=== PATIENT | female | born 1960 | race Caucasian/White ===

== ENCOUNTER → 2017-04-21 | Outpatient (CLI) | payer OTHER | END | disposition home or self-care (01) | LOC: WOUND 07:51 | PROVIDERS: ATTEND Physician Assistant | DX: T86.820 Skin graft (allograft) rejection (principal); L97.822 Non-pressure chronic ulcer of other part of left lower leg with fat layer exposed; G89.29 Other chronic pain; M81.0 Age-related osteoporosis without current pathological fracture; Z87.891 Personal history of nicotine dependence; Y83.2 Surgical operation with anastomosis, bypass or graft as the cause of abnormal reaction of the patient, or of later complication, without mention of misadventure at the time of the procedure | CPT/HCPCS: 11042; 99215 ==

== ENCOUNTER → 2017-04-28 | Outpatient (CLI) | payer OTHER | END | disposition home or self-care (01) | LOC: WOUND 07:43 | PROVIDERS: ATTEND Physician Assistant | DX: T86.820 Skin graft (allograft) rejection (principal); L97.822 Non-pressure chronic ulcer of other part of left lower leg with fat layer exposed; M81.0 Age-related osteoporosis without current pathological fracture; G89.29 Other chronic pain; Z87.891 Personal history of nicotine dependence; Y83.2 Surgical operation with anastomosis, bypass or graft as the cause of abnormal reaction of the patient, or of later complication, without mention of misadventure at the time of the procedure | CPT/HCPCS: 11042 ==

== ENCOUNTER → 2017-05-05 | Outpatient (CLI) | payer OTHER | END | disposition home or self-care (01) | LOC: WOUND 07:57 | PROVIDERS: ATTEND Physician Assistant | DX: T86.820 Skin graft (allograft) rejection (principal); L97.822 Non-pressure chronic ulcer of other part of left lower leg with fat layer exposed; M81.0 Age-related osteoporosis without current pathological fracture; Z87.891 Personal history of nicotine dependence; G89.29 Other chronic pain; Y83.2 Surgical operation with anastomosis, bypass or graft as the cause of abnormal reaction of the patient, or of later complication, without mention of misadventure at the time of the procedure | CPT/HCPCS: 97597 ==

== ENCOUNTER → 2017-05-12 | Outpatient (CLI) | payer OTHER | END | disposition home or self-care (01) | LOC: WOUND 08:00 | PROVIDERS: ATTEND Internal Medicine | DX: T86.820 Skin graft (allograft) rejection (principal); L97.822 Non-pressure chronic ulcer of other part of left lower leg with fat layer exposed; Z87.891 Personal history of nicotine dependence; Y83.2 Surgical operation with anastomosis, bypass or graft as the cause of abnormal reaction of the patient, or of later complication, without mention of misadventure at the time of the procedure | CPT/HCPCS: 11042; 11045 ==

== ENCOUNTER → 2017-05-26 | Outpatient (CLI) | payer OTHER | END | disposition home or self-care (01) | LOC: WOUND 07:50 | PROVIDERS: ATTEND Physician Assistant | DX: T86.820 Skin graft (allograft) rejection (principal); L97.822 Non-pressure chronic ulcer of other part of left lower leg with fat layer exposed; M81.0 Age-related osteoporosis without current pathological fracture; Z87.891 Personal history of nicotine dependence; Y83.2 Surgical operation with anastomosis, bypass or graft as the cause of abnormal reaction of the patient, or of later complication, without mention of misadventure at the time of the procedure | CPT/HCPCS: 97597 ==

== ENCOUNTER → 2017-06-05 | Outpatient (CLI) | payer OTHER | END | disposition home or self-care (01) | LOC: WOUND 08:00 | PROVIDERS: ATTEND Physician Assistant | DX: T86.820 Skin graft (allograft) rejection (principal); L97.822 Non-pressure chronic ulcer of other part of left lower leg with fat layer exposed; M81.0 Age-related osteoporosis without current pathological fracture; Z87.891 Personal history of nicotine dependence; Y83.2 Surgical operation with anastomosis, bypass or graft as the cause of abnormal reaction of the patient, or of later complication, without mention of misadventure at the time of the procedure | CPT/HCPCS: 97597 ==

== ENCOUNTER → 2017-06-19 | Outpatient (CLI) | payer OTHER | END | disposition home or self-care (01) | LOC: WOUND 08:00 | PROVIDERS: ATTEND Physician Assistant | DX: T86.820 Skin graft (allograft) rejection (principal); L97.822 Non-pressure chronic ulcer of other part of left lower leg with fat layer exposed; M81.0 Age-related osteoporosis without current pathological fracture; G89.29 Other chronic pain; Z87.891 Personal history of nicotine dependence; Y83.2 Surgical operation with anastomosis, bypass or graft as the cause of abnormal reaction of the patient, or of later complication, without mention of misadventure at the time of the procedure | CPT/HCPCS: 97597 ==

== ENCOUNTER → 2017-07-17 | Outpatient (CLI) | payer OTHER | END | disposition home or self-care (01) | LOC: WOUND 08:00 | PROVIDERS: ATTEND Family Medicine | DX: T86.820 Skin graft (allograft) rejection (principal); L97.822 Non-pressure chronic ulcer of other part of left lower leg with fat layer exposed; M81.0 Age-related osteoporosis without current pathological fracture; Z87.891 Personal history of nicotine dependence; G89.29 Other chronic pain; Y83.2 Surgical operation with anastomosis, bypass or graft as the cause of abnormal reaction of the patient, or of later complication, without mention of misadventure at the time of the procedure | CPT/HCPCS: 99214 ==

== ENCOUNTER → 2017-07-31 | Outpatient (CLI) | payer OTHER | END | disposition home or self-care (01) | LOC: WOUND 08:10 | PROVIDERS: ATTEND Family Medicine | DX: T86.820 Skin graft (allograft) rejection (principal); L97.822 Non-pressure chronic ulcer of other part of left lower leg with fat layer exposed; M81.0 Age-related osteoporosis without current pathological fracture; G89.29 Other chronic pain; Z87.891 Personal history of nicotine dependence; Y83.2 Surgical operation with anastomosis, bypass or graft as the cause of abnormal reaction of the patient, or of later complication, without mention of misadventure at the time of the procedure | CPT/HCPCS: 97597 ==

== ENCOUNTER → 2017-08-14 | Outpatient (CLI) | payer OTHER | END | disposition home or self-care (01) | LOC: WOUND 08:00 | PROVIDERS: ATTEND Family Medicine | DX: T86.820 Skin graft (allograft) rejection (principal); L97.822 Non-pressure chronic ulcer of other part of left lower leg with fat layer exposed; M81.0 Age-related osteoporosis without current pathological fracture; G89.29 Other chronic pain; Z87.891 Personal history of nicotine dependence; Y83.2 Surgical operation with anastomosis, bypass or graft as the cause of abnormal reaction of the patient, or of later complication, without mention of misadventure at the time of the procedure | CPT/HCPCS: 97597 ==

== ENCOUNTER → 2017-09-04 | Outpatient (CLI) | payer OTHER | END | disposition home or self-care (01) | LOC: WOUND 08:15 | PROVIDERS: ATTEND Family Medicine | DX: T86.820 Skin graft (allograft) rejection (principal); L97.822 Non-pressure chronic ulcer of other part of left lower leg with fat layer exposed; M81.0 Age-related osteoporosis without current pathological fracture; Z87.891 Personal history of nicotine dependence; Y83.2 Surgical operation with anastomosis, bypass or graft as the cause of abnormal reaction of the patient, or of later complication, without mention of misadventure at the time of the procedure | CPT/HCPCS: 97597 ==

== ENCOUNTER → 2017-09-18 | Outpatient (CLI) | payer OTHER | END | disposition home or self-care (01) | LOC: WOUND 08:00 | PROVIDERS: ATTEND Internal Medicine | DX: T86.820 Skin graft (allograft) rejection (principal); L97.822 Non-pressure chronic ulcer of other part of left lower leg with fat layer exposed; M81.0 Age-related osteoporosis without current pathological fracture; G89.29 Other chronic pain; Z87.891 Personal history of nicotine dependence; Y83.2 Surgical operation with anastomosis, bypass or graft as the cause of abnormal reaction of the patient, or of later complication, without mention of misadventure at the time of the procedure | CPT/HCPCS: 11042 ==

== ENCOUNTER → 2017-10-04 | Outpatient (CLI) | payer OTHER | END | disposition home or self-care (01) | LOC: WOUND 09:34 | PROVIDERS: ATTEND Internal Medicine | DX: T86.820 Skin graft (allograft) rejection (principal); L97.822 Non-pressure chronic ulcer of other part of left lower leg with fat layer exposed; M81.0 Age-related osteoporosis without current pathological fracture; G89.29 Other chronic pain; Z87.891 Personal history of nicotine dependence; Y83.2 Surgical operation with anastomosis, bypass or graft as the cause of abnormal reaction of the patient, or of later complication, without mention of misadventure at the time of the procedure | CPT/HCPCS: 97597 ==

== ENCOUNTER → 2017-10-13 | Outpatient (CLI) | payer OTHER | END | disposition home or self-care (01) | LOC: WOUND 08:12 | PROVIDERS: ATTEND Internal Medicine Cardiovascular Disease | DX: T86.820 Skin graft (allograft) rejection (principal); L97.822 Non-pressure chronic ulcer of other part of left lower leg with fat layer exposed; M81.0 Age-related osteoporosis without current pathological fracture; G89.29 Other chronic pain; Z87.891 Personal history of nicotine dependence; Y83.2 Surgical operation with anastomosis, bypass or graft as the cause of abnormal reaction of the patient, or of later complication, without mention of misadventure at the time of the procedure | CPT/HCPCS: 99212 ==

== ENCOUNTER → 2017-11-01 | Outpatient (CLI) | payer OTHER | END | disposition home or self-care (01) | LOC: WOUND 09:35 | PROVIDERS: ATTEND Internal Medicine | DX: T86.820 Skin graft (allograft) rejection (principal); L97.822 Non-pressure chronic ulcer of other part of left lower leg with fat layer exposed; M81.0 Age-related osteoporosis without current pathological fracture; Z87.891 Personal history of nicotine dependence; Y83.2 Surgical operation with anastomosis, bypass or graft as the cause of abnormal reaction of the patient, or of later complication, without mention of misadventure at the time of the procedure | CPT/HCPCS: 97597 ==

== ENCOUNTER → 2017-11-03 | Outpatient (CLI) | payer OTHER | END | disposition home or self-care (01) | LOC: WOUND 08:08 | PROVIDERS: ATTEND Family Medicine | DX: T86.820 Skin graft (allograft) rejection (principal); L97.822 Non-pressure chronic ulcer of other part of left lower leg with fat layer exposed; M81.0 Age-related osteoporosis without current pathological fracture; G89.29 Other chronic pain; Z87.891 Personal history of nicotine dependence; Y83.2 Surgical operation with anastomosis, bypass or graft as the cause of abnormal reaction of the patient, or of later complication, without mention of misadventure at the time of the procedure | CPT/HCPCS: 97597; 97598 ==

== ENCOUNTER → 2017-11-10 | Outpatient (CLI) | payer OTHER | END | disposition home or self-care (01) | LOC: WOUND 09:10 | PROVIDERS: ATTEND Family Medicine | DX: T86.820 Skin graft (allograft) rejection (principal); L97.822 Non-pressure chronic ulcer of other part of left lower leg with fat layer exposed; L84 Corns and callosities; M81.0 Age-related osteoporosis without current pathological fracture; G89.29 Other chronic pain; Z87.891 Personal history of nicotine dependence; Y83.2 Surgical operation with anastomosis, bypass or graft as the cause of abnormal reaction of the patient, or of later complication, without mention of misadventure at the time of the procedure | CPT/HCPCS: 97597 ==

== ENCOUNTER → 2017-11-24 | Outpatient (CLI) | payer OTHER | END | disposition home or self-care (01) | LOC: WOUND 11:00 | PROVIDERS: ATTEND Family Medicine | DX: T86.820 Skin graft (allograft) rejection (principal); L97.822 Non-pressure chronic ulcer of other part of left lower leg with fat layer exposed; M81.0 Age-related osteoporosis without current pathological fracture; G89.29 Other chronic pain; Z87.891 Personal history of nicotine dependence; Y83.2 Surgical operation with anastomosis, bypass or graft as the cause of abnormal reaction of the patient, or of later complication, without mention of misadventure at the time of the procedure | CPT/HCPCS: 99214 ==

== ENCOUNTER → 2018-05-16 | Outpatient (CLI) | payer OTHER ==
[~2018-05-16] MED LIST: GABA600T PO; IBUP-1223 PO; MORP-52 PO; cyclobenzaprine PO
[2018-05-16 11:19] LABS: BASOPHILS # (AUTO) 0.03 x10^3/uL (0-0.1); BASOPHILS % (AUTO) 0 % (0-1); EOSINOPHILS # (AUTO) 0.22 x10^3/uL (0-0.4); EOSINOPHILS % (AUTO) 2 % (1-7); LYMPHOCYTES # (AUTO) 2.45 x10^3/uL (1-3.4); LYMPHOCYTES % (AUTO) 21 % (22-44); MD NO; MEAN CORPUSCULAR HEMOGLOBIN 31.3 pg (27.0-34.8); MEAN CORPUSCULAR VOLUME 91.9 fL (80-100); MEAN PLATELET VOLUME 8.1 fL (7.4-10.4); MONOCYTES # (AUTO) 0.85 x10^3/uL (0.2-0.8); MONOCYTES % (AUTO) 7 % (2-9); NEUTROPHILS # (AUTO) 8.26 x10^3/uL (1.8-6.8); NEUTROPHILS % (AUTO) 70 % (42-75); PLATELET COUNT 335 x10^3/uL (130-400); RED BLOOD COUNT 4.59 x10^6/uL (3.82-5.3); RED CELL DISTRIBUTION WIDTH 12.8 % (9.6-15.2)
[2018-05-16 11:23] LABS: MICROSCOPIC NOT IND
[2018-05-16 11:25] LABS: CULTURE INDICATED? NO
[2018-05-16 11:29] LABS: ANION GAP 7 mmol/L (5-15); CALCIUM 9.3 mg/dL (8.5-10.1); CHLORIDE 105 mmol/L (98-107); CREATININE 0.65 mg/dL (0.55-1.02)
[2018-05-16 11:31] LABS: INTERNATIONAL NORMALIZED RATIO 0.94 (0.93-1.1); PROTHROMBIN TIME 9.8 Seconds (9.6-11.5)
== END | disposition home or self-care (01) ==
LOC: STAR 09:43
PROVIDERS: ATTEND Neurological Surgery
DX: Z01.818 Encounter for other preprocedural examination (principal); M51.36 Other intervertebral disc degeneration, lumbar region; M41.86 Other forms of scoliosis, lumbar region; M48.061 Spinal stenosis, lumbar region without neurogenic claudication
CPT/HCPCS: 36415; 71046; 72110; 80048; 81003; 85025; 85610; 85730; 93005

== ENCOUNTER 2018-05-30 08:52 | Inpatient (IN) | payer OTHER ==
[~2018-05-30] VITALS: Ht 157.5 cm; Wt 76.1 kg
[~2018-05-30 08:52] MED LIST changes: +BACITRACIN 50,000 UNIT ONE; +BUPIVACAINE/PF-EPI 0.5% 1:200K ONE; +THROMBIN 5,000 UNIT VIAL TP ONE; +VANCOMYCIN 1,000 MG ONE
[2018-05-30] MEDS ORDERED: GABAPENTIN 300 MG CAPSULE PO ONE (10:00)
[2018-05-30 10:22] VITALS: BP 114/82
[2018-05-30] MEDS: LACTATED RINGERS 1,000 ML IV SCH ×2 (10:26→20:29)
[2018-05-30] MEDS ORDERED: CYCL-259 PO (10:31)
[2018-05-30] MEDS ORDERED: OXYC-432 PO (10:31)
[2018-05-30] MEDS ORDERED: OMEP-110 PO (10:31)
[2018-05-30] MEDS ORDERED: FENTANYL PF 250 MCG/5ML ONE (10:37)
[2018-05-30] MEDS ORDERED: MIDAZOLAM 1 MG/ML, 2ML ONE ×2 (10:37→14:47)
[2018-05-30] MEDS ORDERED: PROPOFOL 50 ML ONE (10:38)
[2018-05-30] MEDS ORDERED: ONDANSETRON ODT 8 MG PO ONE (11:00)
[2018-05-30] MEDS ORDERED: ACETAMINOPHEN 500 MG TABLET PO ONE (11:00)
[2018-05-30] MEDS ORDERED: ROCURONIUM 10 MG/ML,10ML ONE (11:42)
[2018-05-30] MEDS ORDERED: SUCCINYLCHOLINE 20 MG/ML, 10ML ONE (11:42)
[2018-05-30] MEDS ORDERED: CEFAZOLIN 1,000 MG ONE (13:00)
[2018-05-30] MEDS ORDERED: DEXAMETHASONE 4 MG/ML, 1ML ONE (13:00)
[2018-05-30] MEDS ORDERED: PROPOFOL 10 MG/ML, 20ML ONE (13:00)
[2018-05-30] MEDS ORDERED: LABETALOL 5MG/ML, 20ML IV PRN (13:30)
[2018-05-30] MEDS ORDERED: OXYcodone 5 MG/5 ML ORAL.SOL UDC PO PRN ×2 (13:30→18:00)
[2018-05-30] MEDS ORDERED: MEPERIDINE/PF 25MG/0.5ML IVPush PRN (13:30)
[2018-05-30] MEDS ORDERED: ONDANSETRON 2MG/ML, 2ML IV PRN (13:30)
[2018-05-30] MEDS ORDERED: SCOPOLAMINE PATCH, 1.5MG PATCH.TD72 TD PRN (13:30)
[2018-05-30] MEDS ORDERED: ALBUTEROL/IPRATROPIUM 2.5MG/0.5MG, 3 ML NPPB PRN (13:30)
[2018-05-30] MEDS ORDERED: PROMETHAZINE 25 MG SUPP PR PRN (13:30)
[2018-05-30] MEDS ORDERED: FENTANYL PF 100 MCG/2ML ONE (14:21)
[2018-05-30] MEDS: FENTANYL PF 100 MCG/2ML IV PRN ×2 (14:24→14:31)
[2018-05-30] MEDS ORDERED: HYDROmorphone 2 MG/ML, 1ML ONE (14:32)
[2018-05-30] MEDS: HYDROmorphone 1 MG/ML, 1ML IV PRN ×3 (14:38→15:21)
[2018-05-30] MEDS: MIDAZOLAM 1 MG/ML, 2ML IV PRN ×2 (14:52→15:17)
[2018-05-30] MEDS ORDERED: THROMBIN 5,000 UNIT VIAL TP ONE (14:55)
[2018-05-30] MEDS ORDERED: METHOCARBAMOL 1000MG/10 ML IVPB STA (15:13)
[2018-05-30] MEDS ORDERED: METHOCARBAMOL 1,000 MG in DEXTROSE 5% 100 ML IV STA (15:17)
[2018-05-30] MEDS ORDERED: PROMETHAZINE 25 MG/ML, 1ML IM PRN (18:00)
[2018-05-30] MEDS ORDERED: ONDANSETRON 2MG/ML, 2ML IVPush PRN (18:00)
[2018-05-30] MEDS ORDERED: DIPHENHYDRAMINE 50 MG/ML, 1ML IVPush PRN (18:00)
[2018-05-30] MEDS ORDERED: BISACODYL 10 MG SUPP PR PRN (18:00)
[2018-05-30] MEDS: GABAPENTIN 300 MG CAPSULE PO SCH (19:56)
[2018-05-30] MEDS: KETOROLAC 30 MG/1 ML IM PRN (19:56)
[2018-05-30] MEDS: CYCLOBENZAPRINE 10 MG TABLET PO PRN (20:14)
[2018-05-30] MEDS ORDERED: CEFAZOLIN PMX 1GM/50ML 50 ML IV SCH (21:00)
[2018-05-30] MEDS ORDERED: CEFAZOLIN 1,000 MG IV SCH ×2 (21:00)
[2018-05-30] MEDS: D5%-0.9% NACL+KCL 20MEQ 1,000 ML IV SCH (21:30)
[2018-05-30 21:50] VITALS: BP 112/75
[2018-05-30] MEDS: CEFAZOLIN PMX 1GM/50ML 50 ML IVPB SCH (22:35)
[2018-05-31] MEDS: OXYcodone 5 MG/5 ML ORAL.SOL UDC PO PRN ×5 (00:57→20:26)
[2018-05-31 01:29] VITALS: BP 89/59
[2018-05-31] MEDS: KETOROLAC 30 MG/1 ML IM PRN ×2 (02:19→20:27)
[2018-05-31 05:04] VITALS: BP 91/62
[2018-05-31] MEDS: CEFAZOLIN PMX 1GM/50ML 50 ML IVPB SCH (05:20)
[2018-05-31] MEDS: GABAPENTIN 300 MG CAPSULE PO SCH ×4 (05:21→20:27)
[2018-05-31 05:26] LABS: BASOPHILS # (AUTO) 0.02 x10^3/uL (0-0.1); BASOPHILS % (AUTO) 0 % (0-1); EOSINOPHILS % (AUTO) 0 % (1-7); LYMPHOCYTES # (AUTO) 1.22 x10^3/uL (1-3.4); LYMPHOCYTES % (AUTO) 9 % (22-44); MD NO; MEAN CORPUSCULAR HEMOGLOBIN 31.3 pg (27.0-34.8); MEAN CORPUSCULAR HGB CONC 33.7 g/dL (32.4-35.8); MEAN CORPUSCULAR VOLUME 92.9 fL (80-100); MEAN PLATELET VOLUME 7.9 fL (7.4-10.4); MONOCYTES % (AUTO) 6 % (2-9); NEUTROPHILS # (AUTO) 12.16 x10^3/uL (1.8-6.8); NEUTROPHILS % (AUTO) 85 % (42-75); PLATELET COUNT 293 x10^3/uL (130-400); RED BLOOD COUNT 3.53 x10^6/uL (3.82-5.3); RED CELL DISTRIBUTION WIDTH 12.8 % (9.6-15.2)
[2018-05-31 05:40] LABS: ANION GAP 6 mmol/L (5-15); CHLORIDE 109 mmol/L (98-107); CREATININE 0.55 mg/dL (0.55-1.02)
[2018-05-31] MEDS: OMEPRAZOLE 20 MG CAPSULE.DR PO SCH (08:04)
[2018-05-31 08:33] VITALS: BP 95/62
[2018-05-31] MEDS: SENNA/DOCUSATE TABLET PO SCH (09:00)
[2018-05-31] MEDS: MAGNESIUM HYDROXIDE 8%, 30ML UDC PO SCH (09:00)
[2018-05-31] MEDS: D5%-0.9% NACL+KCL 20MEQ 1,000 ML IV SCH ×2 (09:48→18:17)
[2018-05-31 13:05] VITALS: BP 104/60
[2018-05-31] MEDS: CYCLOBENZAPRINE 10 MG TABLET PO PRN (18:17)
[2018-05-31 20:16] VITALS: BP 92/56
[2018-06-01] MEDS: OXYcodone 5 MG/5 ML ORAL.SOL UDC PO PRN ×6 (00:51→23:45)
[2018-06-01 02:43] VITALS: BP 92/61
[2018-06-01] MEDS: D5%-0.9% NACL+KCL 20MEQ 1,000 ML IV SCH ×3 (03:22→19:53)
[2018-06-01 05:40] LABS: ANION GAP 6 mmol/L (5-15); CHLORIDE 108 mmol/L (98-107); CREATININE 0.57 mg/dL (0.55-1.02)
[2018-06-01 05:42] LABS: BASOPHILS # (AUTO) 0.04 x10^3/uL (0-0.1); BASOPHILS % (AUTO) 1 % (0-1); EOSINOPHILS # (AUTO) 0.08 x10^3/uL (0-0.4); EOSINOPHILS % (AUTO) 1 % (1-7); LYMPHOCYTES # (AUTO) 2.31 x10^3/uL (1-3.4); LYMPHOCYTES % (AUTO) 27 % (22-44); MD NO; MEAN CORPUSCULAR VOLUME 94.3 fL (80-100); MEAN PLATELET VOLUME 7.8 fL (7.4-10.4); MONOCYTES # (AUTO) 0.71 x10^3/uL (0.2-0.8); MONOCYTES % (AUTO) 8 % (2-9); NEUTROPHILS # (AUTO) 5.52 x10^3/uL (1.8-6.8); NEUTROPHILS % (AUTO) 64 % (42-75); PLATELET COUNT 228 x10^3/uL (130-400); RED BLOOD COUNT 3.17 x10^6/uL (3.82-5.3); RED CELL DISTRIBUTION WIDTH 13.5 % (9.6-15.2)
[2018-06-01] MEDS: KETOROLAC 30 MG/1 ML IM PRN ×2 (06:15→16:12)
[2018-06-01] MEDS: GABAPENTIN 300 MG CAPSULE PO SCH ×4 (06:15→21:08)
[2018-06-01 07:48] VITALS: BP 89/51
[2018-06-01] MEDS ORDERED: morphine SULFATE/PF 0.5 MG/ML, 10ML IV PRN (09:30)
[2018-06-01 09:40] VITALS: BP 101/66
[2018-06-01] MEDS: OMEPRAZOLE 20 MG CAPSULE.DR PO SCH (09:41)
[2018-06-01] MEDS: SENNA/DOCUSATE TABLET PO SCH (09:42)
[2018-06-01] MEDS: MAGNESIUM HYDROXIDE 8%, 30ML UDC PO SCH (09:43)
[2018-06-01 12:42] VITALS: BP_SYST 100; BP_SYST 92; BP_DIAS 58; BP_DIAS 65
[2018-06-01] MEDS: CYCLOBENZAPRINE 10 MG TABLET PO PRN (15:56)
[2018-06-01 18:34] VITALS: BP 100/63
[2018-06-02 00:47] VITALS: BP 113/76
[2018-06-02] MEDS: KETOROLAC 30 MG/1 ML IM PRN ×4 (03:22→22:00)
[2018-06-02] MEDS: GABAPENTIN 300 MG CAPSULE PO SCH ×4 (04:12→20:00)
[2018-06-02] MEDS: D5%-0.9% NACL+KCL 20MEQ 1,000 ML IV SCH ×3 (04:12→22:00)
[2018-06-02] MEDS: OMEPRAZOLE 20 MG CAPSULE.DR PO SCH (07:15)
[2018-06-02] MEDS: OXYcodone 5 MG/5 ML ORAL.SOL UDC PO PRN ×4 (07:15→20:05)
[2018-06-02 07:40] VITALS: BP 98/67
[2018-06-02] MEDS: CYCLOBENZAPRINE 10 MG TABLET PO PRN ×3 (08:48→18:08)
[2018-06-02] MEDS: SENNA/DOCUSATE TABLET PO SCH (09:18)
[2018-06-02] MEDS: MAGNESIUM HYDROXIDE 8%, 30ML UDC PO SCH (09:18)
[2018-06-02] MEDS ORDERED: METHYLNALTREXONE 12 MG/0.6 ML SQ PRN (12:30)
[2018-06-02] MEDS ORDERED: MAGNESIUM CITRATE 300ML ORAL SOL PO ONE (12:30)
[2018-06-02 15:12] VITALS: BP 122/76
[2018-06-02 19:49] VITALS: BP 98/64
[2018-06-03 03:22] VITALS: BP 123/78
[2018-06-03] MEDS: OXYcodone 5 MG/5 ML ORAL.SOL UDC PO PRN ×3 (03:26→11:43)
[2018-06-03] MEDS: CYCLOBENZAPRINE 10 MG TABLET PO PRN (05:56)
[2018-06-03] MEDS: D5%-0.9% NACL+KCL 20MEQ 1,000 ML IV SCH (05:56)
[2018-06-03] MEDS: GABAPENTIN 300 MG CAPSULE PO SCH ×2 (05:56→10:58)
[2018-06-03 06:58] VITALS: BP 107/74
[2018-06-03] MEDS: OMEPRAZOLE 20 MG CAPSULE.DR PO SCH (07:48)
[2018-06-03] MEDS: KETOROLAC 30 MG/1 ML IM PRN (07:49)
[2018-06-03] MEDS: SENNA/DOCUSATE TABLET PO SCH (07:53)
[2018-06-03] MEDS: MAGNESIUM HYDROXIDE 8%, 30ML UDC PO SCH (07:53)
[2018-06-03] MEDS ORDERED: DIPHENHYDRAMINE 12.5MG/5ML, 10ML UDC PO ONE (08:30)
[2018-06-03] MEDS ORDERED: KETO10TA PO (10:05)
[2018-06-03 11:32] VITALS: BP 149/83
== END 2018-06-03 11:50 | disposition home health service (06) | DRG 455 ==
LOC: ORIP 08:52 → 4NOR 16:01
PROVIDERS: ADMIT Neurological Surgery; ATTEND Neurological Surgery
PROC: 0SG0071 Fusion of Lumbar Vertebral Joint with Autologous Tissue Substitute, Posterior Approach, Posterior Column, Open Approach (ICD-10-PCS; 2018-05-30)
PROC: 4A11X4G Monitoring of Peripheral Nervous Electrical Activity, Intraoperative, External Approach (ICD-10-PCS; 2018-05-30)
PROC: 0SG00AJ Fusion of Lumbar Vertebral Joint with Interbody Fusion Device, Posterior Approach, Anterior Column, Open Approach (ICD-10-PCS; principal; 2018-05-30 12:00)
DX: M48.062 Spinal stenosis, lumbar region with neurogenic claudication (principal); M43.16 Spondylolisthesis, lumbar region; G89.29 Other chronic pain; K59.00 Constipation, unspecified; R21 Rash and other nonspecific skin eruption
CPT/HCPCS: 36415; 72100; 80048; 85025; 95938; 95941; C1713; C1776; G0378; J0690; J1100; J1170; J1885; J2250; J2270; J2704; J3010; J3370; Q0162; C1762; J0330; J2800; J3480; J7120

== ENCOUNTER → 2018-07-18 | Outpatient (CLI) | payer OTHER ==
[~2018-07-18] MED LIST changes: -BACITRACIN 50,000 UNIT ONE; -BUPIVACAINE/PF-EPI 0.5% 1:200K ONE; +CYCL-259 PO; +KETO10TA PO; +OMEP-110 PO; +OXYC-432 PO; -THROMBIN 5,000 UNIT VIAL TP ONE; -VANCOMYCIN 1,000 MG ONE
== END | disposition home or self-care (01) ==
LOC: RAD 15:54
PROVIDERS: ATTEND Registered Nurse Registered Nurse First Assistant
DX: M43.16 Spondylolisthesis, lumbar region (principal); M41.86 Other forms of scoliosis, lumbar region
CPT/HCPCS: 72100